=== PATIENT | male | born 1990 | race Caucasian/White ===

== ENCOUNTER 2017-12-08 02:22 | Emergency (ER) | payer BC, MEDICAID, OTHER ==
[2017-12-08 02:34] VITALS: BP 129/76
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
[2017-12-08] MEDS ORDERED: Lidocaine 5% 700 MG Patch TOP ONE (02:58)
--- NOTE | 2017-12-08 15:44 | CR ---
Right shoulder: Three views of the right shoulder were obtained. Comparison: No previous shoulder study. Acromioclavicular and glenohumeral joints appear unremarkable. No fracture, dislocation or other bony abnormality is seen. Impression: 1. No abnormality is seen on right shoulder study. Diagnostic code #1
== END 2017-12-08 04:06 | disposition home or self-care (01) ==
LOC: JD.ED 02:22
DX: M75.51 Bursitis of right shoulder (principal); F17.210 Nicotine dependence, cigarettes, uncomplicated; I10 Essential (primary) hypertension; Z79.899 Other long term (current) drug therapy
CPT/HCPCS: 73030; 99283; A9270